=== PATIENT | male | born 1960 | race Caucasian/White ===

== ENCOUNTER 2018-04-10 20:24 | Emergency (ER) | payer OTHER ==
[2018-04-10 21:36] LABS: BASOPHILS % (AUTO) 0.5 % (0.0-5.0); EOSINOPHILS % (AUTO) 1.6 % (0.0-8.0); HEMATOCRIT 38.9 % (42-54); LYMPHOCYTES % (AUTO) 22.6 % (21.0-51.0); MEAN CORPUSCULAR HEMOGLOBIN 33.7 pg (27.0-33.0); MEAN CORPUSCULAR HGB CONC 35.3 g/dL (32.0-36.0); MEAN CORPUSCULAR VOLUME 95.4 fL (79-99); MONOCYTES % (AUTO) 5.1 % (3.0-13.0); NEUTROPHILS % (AUTO) 70.2 % (40.0-77.0); PLATELET COUNT (AUTO) 141 K/uL (130-400); RED BLOOD CELL COUNT(AUTO) 4.08 MIL/uL (4.50-6.20); RED CELL DISTRIBUTION WIDTH 12.9 % (11.0-15.5); WHITE BLOOD COUNT (AUTO) 6.3 K/uL (4.8-10.8)
[2018-04-10 21:42] LABS: POTASSIUM 3.3 mmol/L (3.5-5.1)
[2018-04-10 21:44] LABS: INR 1.02 (0.85-1.15); PARTIAL THROMBOPLASTIN TIME 22.6 SEC (26.3-35.5); PROTHROMBIN TIME 10.7 SEC (9.6-11.6)
[2018-04-10 21:55] LABS: ALBUMIN 4.1 g/dL (3.5-5.0); BILIRUBIN,TOTAL 1.4 mg/dL (0.2-1.0); CREATINE KINASE MB 0.8 ng/mL (0.5-3.6); TOTAL PROTEIN, SERUM 7.2 g/dL (6.0-8.3)
[2018-04-10] MEDS ORDERED: IOPAMIDOL-370 75 ML VIAL IV ONE (23:41)
[2018-04-11] MEDS ORDERED: ONDANSETRON HCL MDV 20ML 2 MG/ML VIAL ONE (00:39)
[2018-04-11] MEDS ORDERED: MORPHINE SULFATE 4 MG/1ML SYG ONE (00:39)
== END 2018-04-11 02:31 | disposition home or self-care (01) ==
LOC: EDH 20:24
DX: R07.9 Chest pain, unspecified (principal); R10.9 Unspecified abdominal pain; I25.10 Atherosclerotic heart disease of native coronary artery without angina pectoris; E78.5 Hyperlipidemia, unspecified; I10 Essential (primary) hypertension; Z95.1 Presence of aortocoronary bypass graft
CPT/HCPCS: 36415; 71045; 74177; 80053; 82550; 82553; 83690; 84484 ×2; 85025; 85610; 85730; 93005 ×2; 94761; 96374; 96375; 99285; J2270; Q9967

== ENCOUNTER 2021-07-13 12:41 | Emergency (ER) | payer BC, OTHER ==
[~2021-07-13] VITALS: Ht 188 cm; Wt 113.4 kg
[2021-07-13 12:42] VITALS: BP 133/81
[2021-07-13] MEDS ORDERED: [UNRECOGNIZED DRUG - REMARK] MISC STA (13:10)
[2021-07-13] MEDS ORDERED: GABA300C PO (13:23)
[2021-07-13] MEDS ORDERED: MELO7.5T12 PO (13:23)
[2021-07-13] MEDS ORDERED: KETOROLAC 60 MG VIAL (30MG/ML) IM ONE (13:30)
[2021-07-13] MEDS ORDERED: SOLU-MEDROL 125MG VIAL IM ONE (13:30)
[2021-07-13 14:09] VITALS: BP 132/72
== END 2021-07-13 14:41 | disposition home or self-care (01) ==
LOC: EDH 12:41
DX: M54.41 Lumbago with sciatica, right side (principal); I10 Essential (primary) hypertension; Z79.1 Long term (current) use of non-steroidal anti-inflammatories (NSAID); Z79.52 Long term (current) use of systemic steroids; Z79.899 Other long term (current) drug therapy; Z88.5 Allergy status to narcotic agent; Z95.1 Presence of aortocoronary bypass graft
CPT/HCPCS: 96372 ×2; 99284; J1885; J2930

== ENCOUNTER → 2021-09-03 | Outpatient (CLI) | payer OTHER ==
[~2021-09-03] MED LIST: GABA300C PO; MELO7.5T12 PO
== END | disposition home or self-care (01) ==
LOC: OIH 15:05
PROVIDERS: ATTEND Family Medicine
DX: M17.12 Unilateral primary osteoarthritis, left knee (principal); M47.816 Spondylosis without myelopathy or radiculopathy, lumbar region
CPT/HCPCS: 72100; 73560

== ENCOUNTER 2021-10-10 07:46 | Observation (INO) | payer BC ==
[2021-10-05 11:11] LABS: APPEARANCE,URINE Clear (CLEAR); BILIRUBIN,URINE Negative (NEGATIVE); COLOR,URINE Yellow (YELLOW); GLUCOSE, URINE (UA) Negative (NEGATIVE); KETONES,URINE Negative (NEGATIVE); LEUKOCYTE ESTERASE ,URINE Negative (NEGATIVE); NITRATE,URINE Negative (NEGATIVE); OCCULT BLOOD,URINE Negative (NEGATIVE); PH,URINE 6.5 (5.0-8.0); PROTEIN,URINE Negative (NEGATIVE)
[2021-10-05 11:16] LABS: BASOPHILS % (AUTO) 0.9 % (0.0-5.0); EOSINOPHILS % (AUTO) 3.1 % (0.0-8.0); HEMATOCRIT 43.3 % (42-54); LYMPHOCYTES % (AUTO) 34.8 % (21.0-51.0); MONOCYTES % (AUTO) 13.7 % (3.0-13.0); NEUTROPHILS % (AUTO) 47.2 % (40.0-77.0); PLATELET COUNT (AUTO) 78 K/uL (130-400); RED BLOOD CELL COUNT(AUTO) 4.33 MIL/uL (4.50-6.20); RED CELL DISTRIBUTION WIDTH 12.9 % (11.0-15.5); WHITE BLOOD COUNT (AUTO) 3.5 K/uL (4.8-10.8)
[2021-10-05 11:27] LABS: POTASSIUM 4.3 mmol/L (3.5-5.1)
[2021-10-05 11:34] LABS: INR 1.08 (0.85-1.15); PROTHROMBIN TIME 11.7 SEC (9.6-11.6)
[2021-10-05 11:35] LABS: PARTIAL THROMBOPLASTIN TIME 27.2 SEC (26.3-35.5)
[2021-10-09 12:06] VITALS: BP 137/81
[~2021-10-10] VITALS: Ht 188 cm; Wt 114.6 kg
[2021-10-10] VITALS (20 sets, daily range): BP systolic 100–138; BP diastolic 72–86
[~2021-10-10 07:46] MED LIST changes: +ASPI-1197 PO; -GABA300C PO; +GABA800T9 PO; +LOSA25TA41 PO; -MELO7.5T12 PO; +METO-409 PO; +MONT-39 PO; +OMEP40CA21 PO; +ROSU20TA31 PO
[2021-10-10 08:07] LABS: BASOPHILS % (AUTO) 0.7 % (0.0-5.0); EOSINOPHILS % (AUTO) 2.9 % (0.0-8.0); HEMATOCRIT 46.2 % (42-54); LYMPHOCYTES % (AUTO) 36.9 % (21.0-51.0); MEAN CORPUSCULAR HEMOGLOBIN 32.9 pg (27.0-33.0); MEAN CORPUSCULAR HGB CONC 32.9 g/dL (32.0-36.0); MONOCYTES % (AUTO) 12.1 % (3.0-13.0); PLATELET COUNT (AUTO) 102 K/uL (130-400); RED BLOOD CELL COUNT(AUTO) 4.62 MIL/uL (4.50-6.20); RED CELL DISTRIBUTION WIDTH 13.1 % (11.0-15.5); WHITE BLOOD COUNT (AUTO) 4.6 K/uL (4.8-10.8)
[2021-10-10] MEDS ORDERED: 0.9%NACL 1000ML 1,000 ML IV ONE (08:10)
[2021-10-10] MEDS ORDERED: NITROGLYCERIN 50MG VIAL IV ONE (11:26)
[2021-10-10] MEDS ORDERED: IOHEXOL-350 50ML VIAL IV ONE (11:26)
[2021-10-10] MEDS ORDERED: LIDOCAINE HCL 400MG/20ML VIAL ONE (11:26)
[2021-10-10] MEDS ORDERED: IOHEXOL 350 MG/ML 100ML INFUS..BTL IV ONE ×2 (11:26→12:33)
[2021-10-10] MEDS ORDERED: HEPARIN 10,000 UNIT/10ML (1,000 UNIT/ML) VIAL ONE (11:28)
[2021-10-10] MEDS ORDERED: BIVALIRUDIN 250 MG/VIAL IV ONE ×2 (11:50→13:09)
[2021-10-10] MEDS ORDERED: MIDAZOLAM HCL 1 MG/ML 2ML VIAL ONE (11:51)
[2021-10-10] MEDS ORDERED: PRASUGREL HCL 10 MG TABLET ONE (12:38)
[2021-10-10] MEDS ORDERED: ASPIRIN 325MG EC TAB PO ONE (12:38)
[2021-10-10] MEDS ORDERED: ONDANSETRON 4MG INJ IVP PRN (14:30)
[2021-10-10] MEDS ORDERED: 0.9%NACL 1000ML 1,000 ML IV SCH (14:30)
[2021-10-10] MEDS: GABAPENTIN 100 MG CAPSULE PO SCH ×2 (15:16→20:27)
[2021-10-10] MEDS: GABAPENTIN 300 MG CAPSULE PO SCH ×2 (15:16→20:27)
[2021-10-10] MEDS ORDERED: METOPROLOL SUCCINATE 50 MG TAB.SR.24H PO SCH (17:30)
[2021-10-10] MEDS ORDERED: MONTELUKAST SODIUM 10 MG TAB PO SCH (21:00)
[2021-10-10] MEDS ORDERED: ATORVASTATIN 40 MG TABLET PO SCH (21:00)
[2021-10-11] VITALS: BP 119/81
[2021-10-11 04:00] VITALS: BP 117/77
[2021-10-11 04:11] LABS: HEMATOCRIT 42.8 % (42-54); MEAN CORPUSCULAR HEMOGLOBIN 32.5 pg (27.0-33.0); MEAN CORPUSCULAR HGB CONC 32.9 g/dL (32.0-36.0); MEAN CORPUSCULAR VOLUME 98.6 fL (79-99); RED BLOOD CELL COUNT(AUTO) 4.34 MIL/uL (4.50-6.20); WHITE BLOOD COUNT (AUTO) 4.9 K/uL (4.8-10.8)
[2021-10-11 04:27] LABS: CREATININE 1.1 mg/dL (0.5-1.5); POTASSIUM 3.8 mmol/L (3.5-5.1)
[2021-10-11] MEDS ORDERED: PRAS10TA6 PO (07:33)
[2021-10-11 08:00] VITALS: BP 124/84
[2021-10-11] MEDS: GABAPENTIN 100 MG CAPSULE PO SCH (08:46)
[2021-10-11] MEDS: GABAPENTIN 300 MG CAPSULE PO SCH (08:47)
[2021-10-11] MEDS ORDERED: PANTOPRAZOLE 40 MG TAB DR PO SCH (09:00)
[2021-10-11] MEDS ORDERED: LOSARTAN 25 MG TABLET PO SCH (09:00)
[2021-10-11] MEDS ORDERED: PRASUGREL HCL 10 MG TABLET PO SCH (09:00)
[2021-10-11] MEDS ORDERED: ASPIRIN 81MG CHEW TAB PO SCH (09:00)
== END 2021-10-11 11:15 | disposition home or self-care (01) ==
LOC: DAH 07:46 → DAHIP 07:47 → 4CH 08:15
PROVIDERS: ADMIT Internal Medicine Cardiovascular Disease; ATTEND Internal Medicine Cardiovascular Disease
DX: I25.5 Ischemic cardiomyopathy (principal); I25.10 Atherosclerotic heart disease of native coronary artery without angina pectoris; R94.39 Abnormal result of other cardiovascular function study; I10 Essential (primary) hypertension; E78.5 Hyperlipidemia, unspecified; R73.03 Prediabetes; N52.9 Male erectile dysfunction, unspecified; K74.60 Unspecified cirrhosis of liver; I25.2 Old myocardial infarction; Z98.61 Coronary angioplasty status; Z95.1 Presence of aortocoronary bypass graft; Z79.899 Other long term (current) drug therapy
CPT/HCPCS: 36415 ×3; 71045; 80048 ×2; 80061; 81003; 82948 ×2; 85025 ×2; 85027; 85610; 85730; 93005; 93459; A4215; A4216; A4221; A4222; A4223 ×3; A4606; A4663; C1725; C1760; C1769 ×3; C1874; C1887 ×2; C1894 ×2; C9600; G0378 ×21; J0583 ×2; J1644 ×2; J2250; J3490 ×2; J7030; Q9965 ×3; Q9967 ×3; 99156; 99157

== ENCOUNTER → 2022-10-22 | Outpatient (CLI) | payer BC ==
[~2022-10-22] MED LIST changes: +PRAS10TA6 PO
== END | disposition home or self-care (01) ==
LOC: SHCH 10:38
PROVIDERS: ATTEND Internal Medicine Cardiovascular Disease
DX: I10 Essential (primary) hypertension (principal); I25.10 Atherosclerotic heart disease of native coronary artery without angina pectoris; I25.5 Ischemic cardiomyopathy
CPT/HCPCS: 93306

== ENCOUNTER → 2022-11-04 | Outpatient (CLI) | payer BC | END | disposition home or self-care (01) | LOC: SHCH 10:43 | PROVIDERS: ATTEND Internal Medicine Cardiovascular Disease | DX: I73.9 Peripheral vascular disease, unspecified (principal) | CPT/HCPCS: 93925 ==

== ENCOUNTER 2022-11-22 13:04 | Emergency (ER) | payer BC ==
[~2022-11-22] VITALS: Ht 188 cm; Wt 111.1 kg
[2022-11-22 13:08] VITALS: BP 142/88
== END 2022-11-22 16:59 | disposition left against medical advice (07) ==
LOC: EDH 13:04
DX: R05.9 Cough, unspecified (principal); Z53.21 Procedure and treatment not carried out due to patient leaving prior to being seen by health care provider; Z20.822 Contact with and (suspected) exposure to COVID-19
CPT/HCPCS: 71045; 87635; 87804 ×2; C9803

== ENCOUNTER → 2023-06-23 | Outpatient (CLI) | payer OTHER ==
[~2023-06-23] MED LIST changes: +REGADENOSON 0.4 MG/5 ML PF SYG IVP ONE; -ROSU20TA31 PO; +ROSU20TA73 PO
== END | disposition home or self-care (01) ==
LOC: SHCH 08:26
PROVIDERS: ATTEND Internal Medicine Cardiovascular Disease
DX: I25.119 Atherosclerotic heart disease of native coronary artery with unspecified angina pectoris (principal); I51.7 Cardiomegaly
CPT/HCPCS: 78452; 96374; 93017; J2785; A9500 ×2

== ENCOUNTER → 2025-09-19 | Outpatient (CLI) | payer OTHER ==
[~2025-09-19] MED LIST changes: +ATOR40TA69 PO; +CALC1CAP22 PO; +CLOP75TA32 PO; +CYAN50009 PO; +FLUT16H NASAL; +FOLI1 PO; -GABA800T9 PO; -LOSA25TA41 PO; -PRAS10TA6 PO; -REGADENOSON 0.4 MG/5 ML PF SYG IVP ONE; -ROSU20TA73 PO
[2025-09-19] MEDS: REGADENOSON 0.4 MG/5 ML PF SYG IVP ONE (16:43)
== END | disposition home or self-care (01) ==
LOC: RAH 11:14
PROVIDERS: ATTEND Internal Medicine Cardiovascular Disease
DX: I25.10 Atherosclerotic heart disease of native coronary artery without angina pectoris (principal)
CPT/HCPCS: 78452; 93017; J2785; A9500 ×2